=== PATIENT | female | born 1990 ===

== ENCOUNTER 2018-03-28 09:55 | Emergency (ER) | payer MEDICAID ==
--- NOTE | 2018-03-28 14:09 | Emergency Department Report ---
ED Female HPI - General Chief complaint: Vaginal Bleeding Stated complaint: CRAMPING/IRREGULAR CYCLE Source: patient Mode of arrival: Ambulatory Limitations: No Limitations - History of Present Illness Initial comments: This is a 27-year-old -[place] female who presents with abdominal cramping and heavy vaginal bleeding for 4 days. Patient reports a history of irregular menses but cramping is more intense. Patient reports pain as diffuse and 5 out of 10 on pain scale. She is currently not taking anything for symptom relief. She reports she is passing clots with a large amount of bleeding requiring her to change pads every hour. Patient states bleeding started 2 months ago and start and stop every couple of days. Patient denies , frequency, urgency, dysuria, vaginal discharge, and recent exposure to STD. MD Complaint: vaginal bleeding Onset/Timin -: days(s) Severity: moderate Severity scale (0 -10): 5 Quality: cramping Consistency: intermittent Improves with: none Worsens with: none Are you Now?: No Last Menstrual Period: 03/25/18 EDC: 12/30/18 Associated Symptoms: vaginal bleeding, abdominal pain. denies: vaginal discharge, nausea/vomiting, fever/chills, headaches, loss of appetite, dysuria, hematuria, rash, seizure, shortness of breath, syncope, weakness - Related Data Sexually active: Yes : 0 Previous Rx's Medication Instructions Recorded Last Taken Type medroxyPROGESTERone ACETATE 10 mg PO DAILY #10 tablet 03/28/18 Unknown Rx [Medroxyprogesterone Acetate] Allergies Allergy/AdvReac Type Severity Reaction Status Date / Time No Known Allergies Allergy Unverified 03/28/18 11:54 ED Review of Systems ROS: Stated complaint: CRAMPING/IRREGULAR CYCLE Other details as noted in HPI Constitutional: denies: chills, fever Respiratory: denies: cough, shortness of breath, wheezing Cardiovascular: denies: chest pain, palpitations Gastrointestinal: abdominal pain. denies: nausea, diarrhea Genitourinary: abnormal menses. denies: urgency, dysuria, discharge Neurological: denies: headache, weakness, paresthesias Psychiatric: denies: anxiety, depression ED Past Medical Hx - Past Medical History Previous Medical History?: No - Surgical History Past Surgical History?: No - Social History Smoking Status: Never Smoker Substance Use Type: None - Medications Home Medications: Home Medications Medication Instructions Recorded Confirmed Last Taken Type medroxyPROGESTERone ACETATE 10 mg PO DAILY #10 tablet 03/28/18 Unknown Rx [Medroxyprogesterone Acetate] ED Physical Exam - General Limitations: No Limitations General appearance: alert, in no apparent distress, obese (morbidly obese) - Respiratory Respiratory exam: Present: normal lung sounds bilaterally. Absent: respiratory distress - Cardiovascular Cardiovascular Exam: Present: regular rate, normal rhythm. Absent: systolic murmur, diastolic murmur, rubs, gallop - GI/Abdominal GI/Abdominal exam: Present: soft, tenderness (suprapubic tenderness), normal bowel sounds. Absent: distended, guarding, rebound, rigid, organomegaly, mass - Back Exam Back exam: Present: normal inspection - Neurological Exam Neurological exam: Present: alert, oriented X3 - Psychiatric Psychiatric exam: Present: normal affect, normal mood - Skin Skin exam: Present: warm, dry, intact, normal color. Absent: rash ED Course Vital Signs 03/28/18 11:48 Temperature 98.7 F Pulse Rate 63 Respiratory 18 Rate Blood Pressure 114/66 O2 Sat by Pulse 98 Oximetry ED Medical Decision Making - Lab Data Lab Results 03/28/18 Range/Units 13:55 Urine Color Yellow (Yellow) Urine Turbidity Clear (Clear) Urine pH 6.0 (5.0-7.0) Ur Specific [place] 1.006 (1.003-1.030) Urine Protein <15 mg/dl (Negative) mg/dL Urine Glucose (UA) Neg (Negative) mg/dL Urine Ketones Neg (Negative) mg/dL Urine Blood Lg (Negative) Urine Nitrite Neg (Negative) Urine Bilirubin Neg (Negative) Urine Urobilinogen < 2.0 (<2.0) mg/dL Ur Leukocyte Esterase Neg (Negative) Urine WBC (Auto) 8.0 H (0.0-6.0) /HPF Urine RBC (Auto) > 182.0 (0.0-6.0) /HPF U Epithel Cells (Auto) < 1.0 (0-13.0) /HPF Urine Bacteria (Auto) 1+ (Negative) /HPF Urine Mucus Few /HPF Urine HCG, Qual Negative (Negative) - Radiology Data Radiology results: report reviewed, image reviewed FINAL REPORT EXAM: US TRANSVAGINAL HISTORY: abdominal cramping and menorrhagia TECHNIQUE: Grayscale and color doppler ultrasound imaging of the pelvis was performed transabdominally and transvaginally. PRIORS: None. FINDINGS: Uterus: The uterus is homogeneous in echogenicity without focal mass. The uterus measures 7.6 x 3.6 x 4.4 centimeters. Endometrium: The endometrium is normal in echogenicity. The endometrium measures 2.1 millimeters. Ovaries: The ovaries are normal in echogenicity without cyst or mass. Normal flow is seen to the ovaries. The right ovary measures 2.0 x 2.1 x 1.2 centimeters. The left ovary measures 2.0 x 1.7 x 1.8 centimeters. Free fluid: None. IMPRESSION: Normal pelvic ultrasound. - Medical Decision Making Patient was examined by me in the emergency room. Vitals are normal and patient is in no acute distress. Obtained labs and transvaginal and pelvic ultrasound. Ultrasound dictated by radiologist report reviewed by myself with no acute findings. Patient informed of results. Start provera for dysfunctional uterine bleeding. Referral to [facility] for continuance of care. Plan discussed with patient to discharge home and treat outpatient. Patient discharged home in stable condition. Follow up with PCP in 2-3 days. Critical care attestation.: If time is entered above; I have spent that time in minutes in the direct care of this critically ill patient, excluding procedure time. ED Disposition Clinical Impression: Dysfunctional uterine bleeding, Abdominal cramping Menorrhagia Qualifiers: Menorrahagia type: with irregular cycle Qualified Code(s): N92.1 - Excessive and frequent menstruation with irregular cycle Disposition: TO HOME OR SELFCARE Is pt being admited?: No Does the pt Need Aspirin: No Condition: Stable Instructions: Menorrhagia (ED), Dysfunctional Uterine Bleeding (ED) Additional Instructions: Start a menstrual diarrhea to take to [facility] for further evaluation. Follow-up with [facility] in 1 week. Prescriptions: medroxyPROGESTERone ACETATE [Medroxyprogesterone Acetate] 10 mg PO DAILY #10 tablet Referrals: [facility] [Provider Group] - 3-5 Days [facility] [Provider Group] - 3-5 Days [facility] [Outside] - 3-5 Days Forms: Work/School Release Form(ED) Time of Disposition: 17:00 Print Language: ICELANDIC
[2018-03-28 14:37] LABS: HCG Qualitative,Urine Negative (Negative)
[2018-03-28 14:39] LABS: Bacteria,Urine 1+ /HPF (Negative); Bilirubin,Urine NEG (Negative); Blood,Urine LG (Negative); Color,Urine Yellow (Yellow); Mucus,Urine FEW /HPF; Protein,Urine <15 mg/dL mg/dL (Negative); Urobilinogen,Urine < 2.0 mg/dL (<2.0)
[2018-03-28 14:41] LABS: RBC,Urine > 182.0 /HPF (0.0-6.0)
--- NOTE | 2018-03-28 16:38 | Ultrasound Report ---
FINAL REPORT EXAM: US PELVIC COMPLETE HISTORY: abdominal pain TECHNIQUE: Grayscale and color doppler ultrasound imaging of the pelvis was performed transabdominally and transvaginally. PRIORS: None. FINDINGS: Uterus: The uterus is homogeneous in echogenicity without focal mass. The uterus measures 7.6 x 3.6 x 4.4 centimeters. Endometrium: The endometrium is normal in echogenicity. The endometrium measures 2.1 millimeters. Ovaries: The ovaries are normal in echogenicity without cyst or mass. Normal flow is seen to the ovaries. The right ovary measures 2.0 x 2.1 x 1.2 centimeters. The left ovary measures 2.0 x 1.7 x 1.8 centimeters. Free fluid: None. IMPRESSION: Normal pelvic ultrasound.
--- NOTE | 2018-03-28 16:38 | Ultrasound Report ---
FINAL REPORT EXAM: US TRANSVAGINAL HISTORY: abdominal cramping and menorrhagia TECHNIQUE: Grayscale and color doppler ultrasound imaging of the pelvis was performed transabdominally and transvaginally. PRIORS: None. FINDINGS: Uterus: The uterus is homogeneous in echogenicity without focal mass. The uterus measures 7.6 x 3.6 x 4.4 centimeters. Endometrium: The endometrium is normal in echogenicity. The endometrium measures 2.1 millimeters. Ovaries: The ovaries are normal in echogenicity without cyst or mass. Normal flow is seen to the ovaries. The right ovary measures 2.0 x 2.1 x 1.2 centimeters. The left ovary measures 2.0 x 1.7 x 1.8 centimeters. Free fluid: None. IMPRESSION: Normal pelvic ultrasound.
[2018-03-28 17:16] VITALS: BP 126/76
== END 2018-03-28 17:13 | disposition home or self-care (01) ==
LOC: ED 09:55
DX: N92.1 Excessive and frequent menstruation with irregular cycle (principal); N93.8 Other specified abnormal uterine and vaginal bleeding; R10.84 Generalized abdominal pain
CPT/HCPCS: 76830; 76856; 81001; 81025